=== PATIENT | female | born 1950 | race Caucasian/White ===

== ENCOUNTER 2021-09-19 07:59 | Day surgery (SDC) | payer MEDICARE, OTHER ==
[~2021-09-19] VITALS: Ht 168 cm; Wt 120.8 kg
[~2021-09-19 07:59] MED LIST: ACETAMINOPHEN500 M1 PO; ALLOPURINOL300 MG PO; ASCORBIC ACID PO; BYSTOLIC10 MG PO; CALCIUM CHEWABLE PO; CRANBERRY PO; CYCLOBENZAPRINE10 MG PO; ELIQUIS2.5 MG PO; ELIQUIS5 MG PO; FEOSOL325 MG PO; FIBER THERAPY0.52 GM PO; FOLIC ACID1 MG PO; KLOR-CON M 1010 MEQ PO; LASIX20 MG PO; METHOCARBAMOL500 MG PO; METHOTREXATE2.5 MG PO; OCUVITE ADULT1 EAC1 PO; OMEPRAZOLE20 MG PO; OXYCODONE-ACET1 EAC1 PO; PANTOPRAZOLE SO40 MG PO; PRILOSEC20 MG PO; PROBIOTIC1 EAC5 PO; QUERCETIN PO; ROBAXIN500 MG PO; SUCRALFATE1 GM PO; ULTRA-LIGHT RO1 EACH XX; VALSARTAN320 MG PO; VITAMIN B COMP1 EACH PO; VITAMIN B-121000 MC1 PO; ZINC PO; wheelchair
[2021-09-19 08:56] LABS: BILIRUBIN NEGATIVE (NEGATIVE); BLOOD NEGATIVE Ery/uL (NEGATIVE); CLARITY CLEAR (CLEAR); COLOR YELLOW (YELLOW); GLUCOSE (U) NORMAL (NORMAL); LEUKOCYTES 2+ Leu/uL (NEGATIVE); NITRITE NEGATIVE (NEGATIVE); PROTEIN NEGATIVE (NEGATIVE); SPECIFIC GRAVITY 1.025 (1.001-1.030); UROBILINOGEN 0.2 mg/dL (0.2-1.0)
[2021-09-19 09:01] LABS: HCT 39.1 % (37.0-47.0); MCH 31.7 pg (25.0-31.0); MCHC 33.2 g/dL (32.0-36.0); MCV 95.4 fL (78.0-100.0); RBC 4.1 M/uL (4.20-5.40); RDW 13.2 % (11.5-14.0); WBC 6.9 K/uL (4.0-10.5)
[2021-09-19 09:15] LABS: INR 1.03 (0.9-1.2); PROTHROMBIN TIME 12.9 SECONDS (11.8-13.4); PTT 30.3 SECONDS (24.4-34.7)
[2021-09-19 09:24] LABS: ALBUMIN 3.4 g/dL (3.4-5.0); BILIRUBIN - TOTAL 0.5 mg/dL (0.2-1.0); BUN/CREAT RATIO (CALC) 21.6 RATIO; CREATININE 1.11 mg/dL (0.51-0.95); GLOBULIN (CALCULATION) 4.5 g/dL; POTASSIUM 4.6 mmol/L (3.5-5.1); TOTAL PROTEIN 7.9 g/dL (6.4-8.2)
--- NOTE | 2021-09-19 16:54 | NUR ---
PT. HAD A LTKR THIS DATE. PT. HAS A RW AND REQUESTS SAGAR/PEACE FOR PT.
[2021-09-20 05:57] LABS: BASOPHIL 0.1 % (0-2); EOSINOPHIL 0 % (0-7); HGB 9.4 g/dl (12.5-16.0); LYMPHOCYTE 11.7 % (15-48); MCH 31.3 pg (25.0-31.0); MCHC 32.4 g/dL (32.0-36.0); MCV 96.7 fL (78.0-100.0); NEUTROPHIL 82.8 % (41-80); NRBC 0; PLT 187 K/uL (150-400); RDW 13.1 % (11.5-14.0)
[2021-09-20 06:00] LABS: WBC 13.9 K/uL (4.0-10.5)
[2021-09-20 06:16] LABS: BUN/CREAT RATIO (CALC) 26.9 RATIO; CREATININE 1.19 mg/dL (0.51-0.95); POTASSIUM 4.9 mmol/L (3.5-5.1)
[2021-09-20] MEDS ORDERED: OXYCODONE-ACET1 EAC1 PO (09:16)
[2021-09-20] MEDS ORDERED: FEOSOL325 MG PO (09:16)
--- NOTE | 2021-09-20 09:27 | NUR ---
PT REFUSED ALL AM MEDS EXCEPT ELIQUIS, ATENOLOL AND CLINDAMYCIN IV ANTIBIOTIC , PT STATED SHE WOULD TAKE AT HOME ONCE DISCHARGED.
== END 2021-09-20 12:15 | disposition home or self-care (01) ==
LOC: FAS 07:59 → FOFB 12:04 → FAS 09-20 12:15
PROVIDERS: Legal Medicine; Nurse Practitioner Adult Health
DX: M17.12 Unilateral primary osteoarthritis, left knee (principal); M21.162 Varus deformity, not elsewhere classified, left knee; G89.18 Other acute postprocedural pain; I48.91 Unspecified atrial fibrillation; I10 Essential (primary) hypertension; K22.70 Barrett's esophagus without dysplasia; G47.33 Obstructive sleep apnea (adult) (pediatric); E66.01 Morbid (severe) obesity due to excess calories; Z68.41 Body mass index [BMI] 40.0-44.9, adult; Z99.89 Dependence on other enabling machines and devices; Z88.0 Allergy status to penicillin; Z79.01 Long term (current) use of anticoagulants; Z79.899 Other long term (current) drug therapy
CPT/HCPCS: 36415; 73560; 80048; 80053; 81003; 85025; 85610; 85730; 86850; 86900; 86901; 94010; 97162; 97166; 97530-GP; 97535; C1713; C1776; J0171; J1885; J2250; J2270; J2405; J2704; J2795; J3010; J7120

== ENCOUNTER 2022-01-04 15:53 | Emergency (ER) | payer MEDICARE, OTHER ==
[~2022-01-04 15:53] MED LIST changes: +TRAZODONE 50MG50 MG PO
== END 2022-01-04 19:20 | disposition home or self-care (01) ==
LOC: FER 15:53
DX: S62.001A Unspecified fracture of navicular [scaphoid] bone of right wrist, initial encounter for closed fracture (principal); I10 Essential (primary) hypertension; Z88.0 Allergy status to penicillin; W17.89XA Other fall from one level to another, initial encounter; Y92.009 Unspecified place in unspecified non-institutional (private) residence as the place of occurrence of the external cause
CPT/HCPCS: 73110